=== PATIENT | female | born 1985 | race Native Hawaiian/Other Pacific Islander ===

== ENCOUNTER 2018-11-19 10:34 | Day surgery (SDC) | payer OTHER ==
[~2018-11-19] VITALS: Ht 152.4 cm; Wt 68.9 kg
[~2018-11-19 10:34] MED LIST: ADV250INH INH; ALBU8.5H IH; CETI10CA2 PO; FLON1SPR; FLUT22IN INH; LIDOCAINE 1% MDV 20ML VIAL SQ PRN; LR 1,000 ML IV ONE; RANI150T PO; SING10TA32 PO; TIZA4CAP6 PO; VOLT1GEL15 TD
[2018-11-19 11:04] LABS: HEMATOCRIT 42.7 % (36.0-47.0); HEMOGLOBIN 14.6 g/dl (12.0-15.5); MEAN CORPUSCULAR HEMOGLOBIN 31.8 pg (27.0-33.0); MEAN CORPUSCULAR HGB CONC 34.2 g/dl (32.0-36.5); PLATELET COUNT, AUTOMATED 283 10^3/uL (150-450); RED BLOOD COUNT 4.59 10^6/uL (4.00-5.40); WHITE BLOOD COUNT 6.5 10^3/uL (4.0-10.0)
[2018-11-19 11:36] LABS: HCG, SERUM QUALITATIVE NEGATIVE (NEGATIVE)
[2018-11-19] MEDS ORDERED: fentaNYL 100 MCG/2 ML INJECTION (J3010) As Ordered ONE (14:24)
[2018-11-19] MEDS ORDERED: LIDOCAINE 2% INJ 100 MG/5 ML SDV (FOR ANES.) As Ordered ONE (14:24)
[2018-11-19] MEDS ORDERED: dexameTHASONE 4 MG/ML 1ML VIAL (J1100) As Ordered ONE (14:24)
[2018-11-19] MEDS ORDERED: ONDANSETRON 4MG/2ML VIAL (J2405) As Ordered ONE ×2 (14:24→14:53)
[2018-11-19] MEDS ORDERED: MIDAZOLAM INJ 2 MG/2 ML VIAL (J2250) As Ordered ONE (14:24)
[2018-11-19] MEDS ORDERED: PROPOFOL 200 MG/20 ML VIAL As Ordered ONE (14:24)
[2018-11-19] MEDS ORDERED: KETOROLAC 60 MG/2 ML VIAL (J1885) As Ordered ONE (14:24)
[2018-11-19] MEDS ORDERED: SILVER NITRATE APPLICATOR As Ordered ONE (14:29)
[2018-11-19] MEDS ORDERED: NORCO, ANEXSIA 5/325MG TABLET (HYDROcodone/ACETAMINOPHEN) As Ordered ONE (15:11)
--- NOTE | 2018-11-19 15:16 | RO ---
DATE OF PROCEDURE: 11/19/2018 PREOPERATIVE DIAGNOSIS: Embedded intrauterine device (IUD) in endocervical canal. POSTOPERATIVE DIAGNOSIS: Embedded intrauterine device in endocervical canal. PROCEDURE: Intrauterine device removal in the operating room (OR). SURGEON: Dr. Jens Mora AU PAIR: None. ANESTHESIA: Laryngeal mask airway (LMA). FLUIDS: 1 liter of lactated Ringers (LR). URINE OUTPUT: 200 mL via straight catheter. ESTIMATED BLOOD LOSS (EBL): 5 mL. COMPLICATIONS: None. ANTIBIOTICS: None indicated. DETAILED PROCEDURE DESCRIPTION: The risks, benefits, indications, and alternatives of the procedure were reviewed with the patient and informed consent was obtained. The patient was taken to the operating room where LMA anesthesia was obtained without difficulty. An exam under anesthesia was then performed and was significant for a mobile midline 8-week sized uterus. The patient was then placed in the lithotomy position with her legs into Nic stirrups. She was then prepped and draped in the usual sterile fashion. A surgical time-out was then performed and the patient's identity and planned procedure were verified with the operative team. A straight catheter was then performed to drain the patient's bladder. A sterile speculum was then placed into the patient's vagina and the cervix was visualized. The IUD strings were not seen protruding from the cervix. Forrest clamps were used to palpate the IUD embedded into the endocervical canal. It was firmly fixed in the cervical canal. The IUD was then grasped at the midpoint and with a moderate amount of traction the IUD was removed intact from the cervix. Hemostasis was achieved at the endocervical canal with silver nitrate sticks. The IUD was inspected and found to be completely intact and was sent to pathology for review. Re-inspection of the cervix revealed excellent hemostasis. The sterile speculum and all instruments were then removed from the patient's vagina. A vaginal sweep was performed, which confirmed that no retained foreign objects remained in the vagina. The patient tolerated the procedure well. The sponge, instrument, and lap counts were correct times two. The was taken to the postanesthesia care unit (PACU) in stable condition. MTDD
[2018-11-19] MEDS ORDERED: ONDANSETRON 4MG/2ML VIAL (J2405) IV PRN (15:30)
[2018-11-19] MEDS ORDERED: NORCO, ANEXSIA 5/325MG TABLET (HYDROcodone/ACETAMINOPHEN) PO PRN (15:30)
[2018-11-19] MEDS ORDERED: PERCOCET 5MG/325MG TAB PO PRN (15:30)
[2018-11-19] MEDS ORDERED: fentaNYL 100 MCG/2 ML INJECTION (J3010) IV PRN (15:30)
[2018-11-19] MEDS ORDERED: LR 1,000 ML IV SCH (15:30)
[2018-11-19 16:00] VITALS: BP 99/66
== END 2018-11-19 16:08 | disposition home or self-care (01) ==
LOC: M SDC 10:34
PROVIDERS: ATTEND Obstetrics & Gynecology
DX: T83.39XA Other mechanical complication of intrauterine contraceptive device, initial encounter (principal); K21.9 Gastro-esophageal reflux disease without esophagitis; Z79.899 Other long term (current) drug therapy; J45.909 Unspecified asthma, uncomplicated; Y76.2 Prosthetic and other implants, materials and accessory obstetric and gynecological devices associated with adverse incidents
CPT/HCPCS: 36415; 58562; 84703; 85027; 88300; J1100; J1885; J2250; J2405; J3010

== ENCOUNTER 2018-11-24 18:51 | Emergency (ER) | payer OTHER ==
[~2018-11-24] VITALS: Ht 152.4 cm; Wt 68.6 kg
[~2018-11-24 18:51] MED LIST changes: -LIDOCAINE 1% MDV 20ML VIAL SQ PRN; -LR 1,000 ML IV ONE
[2018-11-24] MEDS ORDERED: toradol PO (18:58)
[2018-11-24] MEDS ORDERED: NS 1,000 ML IV ONE (19:45)
--- NOTE | 2018-11-24 19:57 | ECGEPIP ---
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
[2018-11-24] MEDS ORDERED: ISOVUE-370 76% 100ML VIAL (Q9967) As Ordered ONE (20:00)
[2018-11-24] MEDS ORDERED: KETOROLAC 30 MG/ML VIAL (J1885) IV ONE (20:00)
[2018-11-24 20:13] LABS: BASO % 0.3 % (0.0-1.0); EOS # 0.2 10^3/uL (0.0-0.50); EOS % 2.4 % (0.0-3.0); HEMATOCRIT 38.8 % (36.0-47.0); LYMPH # 1.3 10^3/uL (1.5-4.5); LYMPH % 14.3 % (24.0-44.0); MEAN CORPUSCULAR HEMOGLOBIN 30.8 pg (27.0-33.0); MEAN CORPUSCULAR HGB CONC 33.5 g/dl (32.0-36.5); MEAN CORPUSCULAR VOLUME 91.9 fl (80.0-96.0); MONO # 0.8 10^3/uL (0.0-0.8); NEUTROPHILS # 6.6 10^3/uL (1.8-7.7); NEUTROPHILS % 73.8 % (36.0-66.0); PLATELET COUNT, AUTOMATED 231 10^3/uL (150-450); RED BLOOD COUNT 4.22 10^6/uL (4.00-5.40)
[2018-11-24] MEDS ORDERED: ONDANSETRON 4MG/2ML VIAL (J2405) IV ONE (20:15)
--- NOTE | 2018-11-24 20:33 | REPVR ---
EXAM: CT Abdomen and Pelvis With Contrast EXAM DATE/TIME: 11/24/2018 8:06 PM CLINICAL HISTORY: 33 years old, female; Abdominal pain; Generalized; Prior surgery; Surgery type: Iud removal; Additional info: Tachy, SOB, HX of dvt, recent abd surgery TECHNIQUE: Imaging protocol: Axial computed tomography images of the abdomen and pelvis with intravenous contrast. Coronal and sagittal reformatted images were created and reviewed. Radiation optimization: All CT scans at this facility use at least one of these dose optimization techniques: automated exposure control; mA and/or kV adjustment per patient size (includes targeted exams where dose is matched to clinical indication); or iterative reconstruction. Contrast material: ISOVUE 370; Contrast volume: 100 ml; Contrast route: IV; COMPARISON: No relevant prior studies available. FINDINGS: Lungs: Reticulonodular interstitial infiltrates are seen at the left lung base suggesting consolidated pneumonia. No underlying pulmonary edema. No pleural effusion. ABDOMEN: Liver: Liver appears normal with no focal abnormality. Gallbladder and bile ducts: Gallbladder is present and shows no evidence of gallstone. Pancreas: Pancreas appears normal. No focal mass or peripancreatic inflammation. Spleen: Spleen appears homogeneous without focal mass. Adrenals: Adrenal glands are normal in appearance. Kidneys and ureters: Kidneys appear normal, with no stone, solid mass or hydronephrosis. Stomach and bowel: No evidence of small bowel obstruction. No evidence of acute diverticulitis. Appendix: No evidence of acute appendicitis. PELVIS: Bladder: Bladder appears normal. Reproductive: Right ovarian cyst measuring 3.5 cm is present. ABDOMEN and PELVIS: Intraperitoneal space: No pneumoperitoneum. Bones/joints: Bony structures show no acute fracture or destructive process. Soft tissues: No effacement of normal fat planes in the ischiorectal fossa. No pelvic hematoma. No intra-abdominal hematoma. Vasculature: Main portal and splenic veins enhance normally. No aortic aneurysm. Lymph nodes: No enlarged lymph nodes. IMPRESSION: 1. Right ovarian cyst measuring 3.5 cm without evidence of rupture. 2. No evidence of pelvic hematoma or other complication involving the reported IUD removal. 3. Reticulonodular infiltrate at the posterior left lung base which may represent an early pneumonia Electronically signed by: Shad Yao On 11/24/2018 20:33:06 PM
--- NOTE | 2018-11-24 20:35 | REPVR ---
EXAM: CT Angiography Chest With Contrast EXAM DATE/TIME: 11/24/2018 8:06 PM CLINICAL HISTORY: 33 years old, female; Signs and symptoms; Shortness of breath; Additional info: Tachy, SOB, HX of dvt, recent abd surgery TECHNIQUE: Imaging protocol: Axial computed tomographic angiography images of the chest with intravenous contrast using CT angiography protocol. Coronal and sagittal reformatted images were created and reviewed. 3D rendering: MIP reconstructed images were created and reviewed. Radiation optimization: All CT scans at this facility use at least one of these dose optimization techniques: automated exposure control; mA and/or kV adjustment per patient size (includes targeted exams where dose is matched to clinical indication); or iterative reconstruction. Contrast material: ISOVUE 370; Contrast volume: 100 ml; Contrast route: IV; COMPARISON: No relevant prior studies available. FINDINGS: Pulmonary arteries: No focal pulmonary artery filling defect to suggest acute pulmonary embolus. Aorta: No thoracic aortic aneurysm or dissection. Lungs: Pulmonary vascular/interstitial pattern does not suggest active pulmonary edema. Left lower lobe nonconsolidated foci of airway filling suggest pneumonia without consolidation at this point and no central endobronchial lesion. Similar changes are present in the right upper lobe posteriorly Pleural space: No pleural effusion or pneumothorax. Heart: No evidence of cardiac enlargement. Mediastinum: Residual thymic tissue is present in the anterior mediastinum. Upper abdomen: Limited visualization of upper abdomen shows no concerning finding. Lymph nodes: No enlarged mediastinal lymph nodes. Bones/joints: Bony structures show no acute fracture or destructive process. Soft tissues: Unremarkable. IMPRESSION: 1. No evidence of acute pulmonary embolus. 2. Focal right upper lobe and left lower lobe developing pneumonia without consolidation Electronically signed by: Shad Yao On 11/24/2018 20:35:46 PM
[2018-11-24 20:37] LABS: ALBUMIN 3.9 GM/DL (3.2-5.2); ALT/SGPT 99 U/L (12-78); BILIRUBIN,DIRECT < 0.1 MG/DL (0.0-0.2); BILIRUBIN,TOTAL 0.3 MG/DL (0.2-1.0); CK-MB VALUE MASS < 1.0 NG/ML (<3.6); CPK CREATINE PHOSPHOKINASE 38 U/L (26-192); LIPASE 269 U/L (73-393); MB/CK RELATIVE INDEX 2.63 (< OR =4); TOTAL PROTEIN 7.8 GM/DL (6.4-8.2); TROPONIN I < 0.02 NG/ML (< 0.10)
[2018-11-24] MEDS ORDERED: ACETAMINOPHEN TAB 650MG DOSE (2X325MG) PO ONE (20:45)
[2018-11-24] MEDS ORDERED: LevoFLOXacin IV 750 MG in APPROPRIATE DILUENT 1 EA IV ONE (21:15)
[2018-11-24 21:58] LABS: CHLAMYDIA DNA AMPLIFICATION NEGATIVE (NEGATIVE); GC DNA AMPLIFICATION NEGATIVE (NEGATIVE)
[2018-11-24] MEDS ORDERED: LEVA750T7 PO (22:06)
[2018-11-24 22:38] VITALS: BP 117/67
== END 2018-11-24 23:01 | disposition home or self-care (01) ==
LOC: M ED 18:51
DX: J18.9 Pneumonia, unspecified organism (principal); A41.9 Sepsis, unspecified organism; N83.201 Unspecified ovarian cyst, right side; J30.2 Other seasonal allergic rhinitis; Z88.1 Allergy status to other antibiotic agents
CPT/HCPCS: 36415; 71275; 74177; 80047; 80076; 81001; 82550; 82553; 83605; 83690; 84484; 85025; 86850; 86900; 86901; 87040; 87086; 87210; 87491; 87591; 93005; 93041; 96361; 96365; 96366; 96375; 99284; J1885; J1956; J2405; Q9967

== ENCOUNTER → 2018-12-10 | Outpatient (CLI) | payer OTHER ==
[~2018-12-10] MED LIST changes: +LEVA750T7 PO; +toradol PO
--- NOTE | 2018-12-10 08:50 | REP ---
MRI cervical spine without contrast: History: Neck pain. No comparison neck imaging. No known injury. Technique: Sagittal and axial T1 and T2-weighted scans are acquired in the usual fashion with and without fat saturation. Sequences include spin echo, turbo spin-echo, and STIR imaging sequences. MRI findings: There is straightening of the normal cervical lordosis. Cervical vertebral body heights are preserved. Alignment is normal. Craniocervical junction is unremarkable. Cervical cord is normal in coarse, caliber and signal intensity on T1 and T2-weighted scans. There is a small central disc herniation at the C6-7 level effacing the ventral subarachnoid space but not contacting the ventral margin of the cord. No other disc protrusion is seen. No central canal stenosis is seen. No uncovertebral spurring or neural foraminal encroachment is appreciated. Impression: Straightening. Small central disc protrusion at C6-7. No evidence of cord compression. Otherwise negative. Electronically Signed by Tristen Garcia MD 12/10/2018 12:15 P
== END ==
LOC: M RAD 06:38
PROVIDERS: ATTEND Family Medicine
DX: M50.223 Other cervical disc displacement at C6-C7 level (principal)

== ENCOUNTER → 2019-01-28 | Outpatient (CLI) | payer OTHER ==
[~2019-01-28] MED LIST changes: +METHACHOLINE KIT (J7674) INH ONE
--- NOTE | 2019-01-28 15:07 | PFTRPT ---
Height: 60.00 Inches Weight: 150.00 Lbs BSA: 1.65 Diagnosis: R05 DATE OF PROCEDURE: 01/28/2019 ORDERED BY: Dr. Eduardo INTERPRETATION: Study of excellent technical quality. Under protocol, methacholine was administered. Even after a maximal dose of 25 mg or 188.875 CDUs, no provocation dose ever achieved. IMPRESSION: Negative methacholine challenge study. MTDD
== END ==
LOC: M CARPUL 13:43
PROVIDERS: ATTEND Internal Medicine Pulmonary Disease
DX: R05 Cough (principal)

== ENCOUNTER → 2019-03-06 | Outpatient (CLI) | payer OTHER ==
[~2019-03-06] MED LIST changes: -METHACHOLINE KIT (J7674) INH ONE
--- NOTE | 2019-03-07 07:32 | ECHO ---
DATE OF PROCEDURE: 03/06/2019 REFERRING PHYSICIAN: Dr. Jermaine Eduardo INDICATION: Dyspnea. HEIGHT: 150 cm. WEIGHT: 69 kg. DIMENSIONS: IVS: 0.8 LV: 4.9 LVPW: 0.8 LA: 3.4 Aorta: 2.5 RV: 2.8 Left atrium volume index: 28 Mitral E wave velocity: 85 A wave: 57 E prime septal: 11.0 E prime lateral: 10.8 FINDINGS: The study is of good technical quality. The patient is in sinus rhythm. Left ventricle is of normal size and systolic function. Calculated left ventricular ejection fraction (LVEF) was 66%. Right ventricle is normal size and systolic function. Both atria appear normal. All four cardiac valves were well seen and appear normal. No pericardial effusion is noted. Inferior vena cava is normal size and appropriately collapses with respiration. Aortic root, aortic arch and visualized segment of abdominal aorta all appear normal. Doppler interrogation reveals competent aortic and mitral valves. There is trace tricuspid insufficiency. Calculated pulmonary artery pressure is within normal values. Trace pulmonic insufficiency is also seen. Mitral inflow pattern and tissue Doppler imaging of mitral annulus reveal normal diastolic function. CONCLUSIONS: 1. Study is of good technical quality. 2. Normal LV size, systolic and diastolic function. 3. No significant valvular disease. 4. Normal central venous pressure and likely normal pulmonary artery pressure. 5. Normal echocardiogram. COMMENT: Subacute bacterial endocarditis (SBE) prophylaxis not recommended.
== END ==
LOC: M CARPUL 12:46
PROVIDERS: ATTEND Internal Medicine Pulmonary Disease
DX: R06.00 Dyspnea, unspecified (principal)

== ENCOUNTER 2020-02-11 16:00 | Outpatient (RCR) | payer OTHER | END 2020-02-23 | disposition home or self-care (01) | LOC: M ST 16:00 | PROVIDERS: ATTEND General Practice | DX: R06.2 Wheezing (principal) ==

== ENCOUNTER 2020-03-25 13:52 | Outpatient (RCR) | payer OTHER | END 2020-04-24 | LOC: M ST 13:52 | PROVIDERS: ATTEND General Practice | DX: J38.3 Other diseases of vocal cords (principal); R06.2 Wheezing; R06.1 Stridor ==